=== PATIENT | male | born 1990 | race Caucasian/White ===

== ENCOUNTER 2019-03-21 12:12 | Emergency (ER) | payer OTHER ==
[~2019-03-21] VITALS: Ht 162.6 cm; Wt 50.0 kg
[2019-03-21] MEDS ORDERED: TRAMADOL 50 MG50 MG PO (13:55)
[2019-03-21] MEDS ORDERED: NAPROSYN500 MG PO (13:55)
[2019-03-21 14:06] VITALS: BP 123/79
== END 2019-03-21 14:07 | disposition home or self-care (01) ==
LOC: M.ERS 12:12
DX: M54.5 Low back pain (principal)